=== PATIENT | male | born 1960 | race Caucasian/White ===

== ENCOUNTER 2017-10-02 14:31 | Emergency (ER) | payer BC ==
--- NOTE | 2017-10-02 15:11 | EDM.PDOC ---
ED HPI GENERAL MEDICAL PROBLEM - General Chief Complaint: ENT Problem Stated Complaint: TOOTH PAIN Time Seen by Provider: 10/02/17 14:56 Source of Information: Reports: Patient History Limitations: Reports: No Limitations - History of Present Illness INITIAL COMMENTS - FREE TEXT/NARRATIVE: HISTORY AND PHYSICAL: History of present illness: Patient is a 56-year-old male who presents to the emergency room today with complaints of right posterior molar dental pain 3 days. He states he has had a root canal in that location and has had an abscess to that area previous. He states his dentist told him he would be more susceptible to infections in that tooth. He did attempt to get a hold of his dentist yesterday, but they were closed. Today he is requesting an antibiotic and something for pain management. He states he's been using Tylenol and ibuprofen and has not gotten any relief. Denies any fever, chills, throat pain, ear pain, chest pain or shortness of breath. Review of systems: As per history of present illness and below otherwise all systems reviewed and negative. Past medical history: As per history of present illness and as reviewed below otherwise noncontributory. Surgical history: As per history of present illness and as reviewed below otherwise noncontributory. Social history: No reported history of drug or alcohol abuse. Family history: As per history of present illness and as reviewed below otherwise noncontributory. Physical exam: HEENT: Atraumatic, normocephalic, pupils reactive, negative for conjunctival pallor or scleral icterus, mucous membranes moist, throat clear, neck supple, nontender, no lymphadenopathy, trachea midline. Erythema and swelling to #31 # 32. No drainage noted. Meningeal signs. Lungs: Clear to auscultation, breath sounds equal bilaterally, chest nontender. Heart: S1S2, regular rate and rhythm Abdomen: Soft, nondistended, nontender. Pelvis: Stable nontender. Genitourinary: Deferred. Rectal: Deferred. Extremities: Atraumatic, moves all per self. Neurovascular unremarkable. Neuro: Awake, alert, oriented. Cranial nerves II through XII unremarkable. Cerebellum unremarkable. Motor and sensory unremarkable throughout. Exam nonfocal. We'll treat the dental abscess with Augmentin 1 tab twice a day 10 days. We'll dispense 20 tablets of Toledo 5/325 for pain. Did discuss following up with his dentist next week. He voices understanding and has a plan for dental assessment on Wednesday/Wednesday. Diagnostics: [] Therapeutics: [] Impression: Dental abscess Plan: 1. Please take the antibiotic as prescribed. As we discussed reserve the Toledo for home and nighttime use. This medication is a narcotic and will make you drowsy. During daytime hours or while at work use Tylenol or ibuprofen. 2. Follow-up with your dentist as we discussed. Return to the ED as needed and as discussed. Definitive disposition and diagnosis as appropriate pending reevaluation and review of above. Duration: Day(s): Location: Reports: Face ED ROS ENT - Review of Systems Review Of Systems: ROS reveals no pertinent complaints other than HPI. ED EXAM, ENT - Physical Exam Exam: See Below (See dictation) Departure - Departure Time of Disposition: 15:09 Disposition: Home, Self-Care 01 Clinical Impression: Dental abscess - Discharge Information Referrals: Bo Parnell MD [Primary Care Provider] - Additional Instructions: My general discharge The following information is given to patients seen in the emergency department who are being discharged to home. This information is to outline your options for follow-up care. We provide all patients seen in our emergency department with a follow-up referral. The need for follow-up, as well as the timing and circumstances, are variable depending upon the specifics of your emergency department visit. If you don't have a primary care physician on staff, we will provide you with a referral. We always advise you to contact your personal physician following an emergency department visit to inform them of the circumstance of the visit and for follow-up with them and/or the need for any referrals to a consulting specialist. The emergency department will also refer you to a specialist when appropriate. This referral assures that you have the opportunity for follow-up care with a specialist. All of these measure are taken in an effort to provide you with optimal care, which includes your follow-up. Under all circumstances we always encourage you to contact your private physician who remains a resource for coordinating your care. When calling for follow-up care, please make the office aware that this follow-up is from your recent emergency room visit. If for any reason you are refused follow-up, please contact the [facility] Emergency Department at and asked to speak to the emergency department charge nurse. SA[facility] [address] [place] [id number] 1. Please take the antibiotic as prescribed. As we discussed reserve the Toledo for home and nighttime use. This medication is a narcotic and will make you drowsy. During daytime hours or while at work use Tylenol or ibuprofen. 2. Follow-up with your dentist as we discussed. Return to the ED as needed and as discussed.
== END 2017-10-02 15:20 | disposition home or self-care (01) ==
LOC: MW.ED 14:31
DX: K04.7 Periapical abscess without sinus (principal)
CPT/HCPCS: 99282

== ENCOUNTER 2017-10-02 17:15 | Emergency (ER) | payer BC | END 2017-10-02 17:31 | disposition left against medical advice (07) | LOC: MW.ED 17:15 | DX: Z53.21 Procedure and treatment not carried out due to patient leaving prior to being seen by health care provider (principal) ==

== ENCOUNTER 2018-12-02 11:26 | Day surgery (SDC) | payer BC ==
[~2018-12-02 11:26] MED LIST: Lactated Ringers 1,000 ML IV SCH; Midazolam 1 MG/ML 2 ML SDV ONE; Propofol 200 MG/20 ML SDV ONE
--- NOTE | 2018-12-02 12:58 | PCM.PREANE ---
Preanesthetic Assessment - Anesthesia/Transfusion/Family Hx Anesthesia History: Prior Anesthesia Without Reaction Family History of Anesthesia Reaction: No Transfusion History: No Prior Transfusion(s) Intubation History: Unknown - Review of Systems General: No Symptoms Pulmonary: No Symptoms Cardiovascular: No Symptoms Gastrointestinal: Abdominal Pain, Other (repeat colonoscopy (polyps 5 years ago) ) Neurological: No Symptoms Other: Reports: None - Physical Assessment O2 Sat by Pulse Oximetry: 96 Respiratory Rate: 16 Vital Signs: Last Vital Signs Temp 36.4 C 12/02/18 12:46 Pulse 59 L 12/02/18 12:46 Resp 16 12/02/18 12:46 BP 126/83 12/02/18 12:46 Pulse Ox 96 12/02/18 12:46 Height: 1.91 m Weight: 126.099 kg ASA Class: 2 Mental Status: Alert & Oriented x3 Airway Class: Mallampati = 2 Dentition: Reports: Normal Dentition Thyro-Mental Finger Breadths: 3 Mouth Opening Finger Breadths: 3 ROM/Head Extension: Full Lungs: Clear to Auscultation, Normal Respiratory Effort Cardiovascular: Regular Rate, Regular Rhythm - Allergies Allergies/Adverse Reactions: Allergies Allergy/AdvReac Type Severity Reaction Status Date / Time No Known Allergies Allergy Verified 11/29/18 08:08 - Blood Blood Available: No - Anesthesia Plan Pre-Op Medication Ordered: None - Acknowledgements Anesthesia Type Planned: MAC Pt an Appropriate Candidate for the Planned Anesthesia: Yes Alternatives and Risks of Anesthesia Discussed w Pt/Guardian: Yes Pt/Guardian Understands and Agrees with Anesthesia Plan: Yes PreAnesthesia Questionnaire - Past Health History Medical/Surgical History: Denies Medical/Surgical History HEENT History: Reports: Other (See Below) Other HEENT History: wears glasses Cardiovascular History: Reports: High Cholesterol Respiratory History: Reports: PE Other Respiratory History: PE after a fall in Aug 2018, diagnosis questionable- placed on Eloquis for 3 months Gastrointestinal History: Reports: Colon Polyp Genitourinary History: Reports: None Musculoskeletal History: Reports: None Neurological History: Reports: None Psychiatric History: Reports: None Endocrine/Metabolic History: Reports: Obesity/BMI 30+ Hematologic History: Reports: None Immunologic History: Reports: None Oncologic (Cancer) History: Reports: None Dermatologic History: Reports: None - Past Surgical History Head Surgeries/Procedures: Reports: None HEENT Surgical History: Reports: Tonsillectomy Cardiovascular Surgical History: Reports: None Respiratory Surgical History: Reports: None GI Surgical History: Reports: Colonoscopy (5 years ago in [place] - polyps discovered) Endocrine Surgical History: Reports: None Neurological Surgical History: Reports: None Musculoskeletal Surgical History: Reports: None Oncologic Surgical History: Reports: None Dermatological Surgical History: Reports: None - SUBSTANCE USE Smoking Status *Q: Never Smoker Recreational Drug Use History: No - HOME MEDS Home Medications: Home Meds atorvaSTATin [Lipitor] 20 mg PO DAILY 06/25/18 [History] Aspirin [Adult Aspirin] 81 mg PO DAILY 11/04/18 [History] - CURRENT (IN HOUSE) MEDS Current Meds: Current Medications Lactated Ringer's (Ringers, Lactated) 1,000 mls @ 125 mls/hr IV ASDIRECTED [facility] Last Admin: 12/02/18 12:25 Dose: 125 mls/hr Discontinued Medications Lactated Ringer's (Ringers, Lactated) 1,000 mls @ 125 mls/hr IV ASDIRECTED [facility] Midazolam HCl (Versed 1 Mg/Ml) Confirm Administered Dose 2 mg .ROUTE .STK-MED ONE Stop: 12/02/18 11:12 Propofol (Diprivan 20 Ml) Confirm Administered Dose 400 mg .ROUTE .STK-MED ONE Stop: 12/02/18 11:12
--- NOTE | 2018-12-02 14:44 | PCM.OPNOTE ---
- General Post-Op/Procedure Note Date of Surgery/Procedure: 12/02/18 Operative Procedure(s): Colonoscopy w/ cold rectal polypectomy Pre Op Diagnosis: Personal history of colon polyps Post-Op Diagnosis: Rectal polyp Anesthesia Technique: MAC (ASA II) Primary Surgeon: Javid Carpio Condition: Good Free Text/Narrative:: DICTATION 608440 CPT CODE 53613
[2018-12-02] MEDS ORDERED: Lactated Ringers 1,000 ML IV SCH (14:45)
--- NOTE | 2018-12-02 15:29 | PCM48HPAN ---
Post Anesthesia Note - EVALUATION WITHIN 48HRS OF ANESTHETIC Vital Signs in Normal Range: Yes Patient Participated in Evaluation: Yes Respiratory Function Stable: Yes Airway Patent: Yes Cardiovascular Function Stable: Yes Hydration Status Stable: Yes Pain Control Satisfactory: Yes Nausea and Vomiting Control Satisfactory: Yes Mental Status Recovered: Yes Resp Rate: 12 - COMMENTS/OBSERVATIONS Free Text/Narrative:: no anesthesia problems
--- NOTE | 2018-12-02 20:06 | OR ---
SURGEON: Javid Carpio M.D. DATE OF PROCEDURE: 12/02/2018 OPERATION PERFORMED: Colonoscopy with cold rectal polypectomy. ANESTHESIA: MAC. ASA CLASSIFICATION: 2. PREOPERATIVE DIAGNOSIS: Personal history of colon polyps. POSTOPERATIVE DIAGNOSIS: Rectal polyp. DESCRIPTION OF PROCEDURE: The patient was taken to the endoscopy room and positioned on the endoscopy table in the left lateral decubitus position. Time-out was called for appropriate identification of the patient and procedure. Monitored anesthesia care was provided. The colonoscope was inserted into the rectum and advanced with minimal difficulty to the cecum where the colonoscope was retroflexed to visualize the ascending colon from below. The colonoscope was then straightened and slowly withdrawn. The cecum, ascending colon, hepatic flexure, transverse colon, splenic flexure, descending colon, and sigmoid colon were very well visualized. No tumors, polyps, diverticula, or angiodysplastic changes were noted. One small polyp was encountered in the rectum, and this was removed with the cold biopsy forceps. The colonoscope was retroflexed to visualize the ascending colon from below, then straightened to visualize the anal orifice from above. No tumors, polyps, or acute hemorrhoidal changes were noted. The colonoscope was then straightened, the rectum aspirated, and the colonoscope removed. The patient tolerated the procedure well and was taken to recovery room in stable condition. EVELYN ARELLANO /[id number]
== END 2018-12-02 15:15 | disposition home or self-care (01) ==
LOC: MW.SDS 11:26
PROVIDERS: ATTEND Surgery
DX: Z12.11 Encounter for screening for malignant neoplasm of colon (principal); K62.1 Rectal polyp; E66.9 Obesity, unspecified; Z68.34 Body mass index [BMI] 34.0-34.9, adult; E88.81 Metabolic syndrome and other insulin resistance; E78.00 Pure hypercholesterolemia, unspecified; Z86.010 Personal history of colon polyps; Z79.82 Long term (current) use of aspirin; Z79.899 Other long term (current) drug therapy
CPT/HCPCS: 45380; J2250; J2704; J7120

== ENCOUNTER 2020-01-05 22:11 | Emergency (ER) | payer BC, OTHER ==
--- NOTE | 2020-01-05 22:25 | EDM.PDOC ---
ED HPI GENERAL MEDICAL PROBLEM - General Chief Complaint: Fever Stated Complaint: FEVER Time Seen by Provider: 01/05/20 22:21 Source of Information: Reports: Patient History Limitations: Reports: No Limitations - History of Present Illness INITIAL COMMENTS - FREE TEXT/NARRATIVE: Patient is a 59-year-old male who is complaining of having his shingles vaccine in his left arm yesterday after which he had severe arm pain and then flulike symptoms which have continued on today for worsen this morning. Patient states he felt like he was hit by a truck. He denies that his arm is red or swollen or painful currently. Complaining of both fever and chills. He denies any cough or shortness of breath. Patient is not nauseous but no vomiting or diarrhea. He states he has eaten all his meals without difficulty today. He denies any dysuria or hematuria. He has had no chest or abdominal pain. Patient has been taking Tylenol without relief of his symptoms today. States he did go to work and does have a mild headache currently. 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 Pain Score (Numeric/FACES): 2 - Related Data Allergies Allergy/AdvReac Type Severity Reaction Status Date / Time No Known Allergies Allergy Verified 01/05/20 22:24 Home Meds: Home Meds atorvaSTATin [Lipitor] 20 mg PO DAILY 06/25/18 [History] Aspirin [Adult Aspirin] 81 mg PO DAILY 11/04/18 [History] Sildenafil [Viagra] mg PO ASDIRECTED PRN 01/05/20 [History] Past Medical History - Past Health History Medical/Surgical History: Denies Medical/Surgical History HEENT History: Reports: Other (See Below) Other HEENT History: wears glasses Cardiovascular History: Reports: High Cholesterol Respiratory History: Reports: PE Other Respiratory History: PE after a fall in Aug 2018, diagnosis questionable- placed on Eloquis for 3 months Gastrointestinal History: Reports: Colon Polyp Genitourinary History: Reports: None Musculoskeletal History: Reports: None Neurological History: Reports: None Psychiatric History: Reports: None Endocrine/Metabolic History: Reports: Obesity/BMI 30+ Hematologic History: Reports: None Immunologic History: Reports: None Oncologic (Cancer) History: Reports: None Dermatologic History: Reports: None - Past Surgical History Head Surgeries/Procedures: Reports: None HEENT Surgical History: Reports: Tonsillectomy Cardiovascular Surgical History: Reports: None Respiratory Surgical History: Reports: None GI Surgical History: Reports: Colonoscopy (5 years ago in [place] - polyps discovered) Endocrine Surgical History: Reports: None Neurological Surgical History: Reports: None Musculoskeletal Surgical History: Reports: None Oncologic Surgical History: Reports: None Dermatological Surgical History: Reports: None Social & Family History - Family History Family Medical History: Noncontributory Cardiac: Reports: High Cholesterol, Hypertension - Caffeine Use Caffeine Use: Reports: Coffee Caffeine Use Comment: 3 cups/day ED ROS GENERAL - Review of Systems Review Of Systems: Comprehensive ROS is negative, except as noted in HPI. ED EXAM, GENERAL - Physical Exam Exam: See Below Free Text/Narrative:: Exam: See Below Exam Limited By: No Limitations Head: Atraumatic Neck: Normal Inspection. No: Carotid Bruit, Lymphadenopathy (R) Respiratory/Chest: No Respiratory Distress, Lungs Clear, Normal Breath Sounds, No Accessory Muscle Use. No: Chest Non-Tender Cardiovascular: Normal Peripheral Pulses, Regular Rate, Rhythm, No Edema, No JVD GI/Abdominal: Normal Bowel Sounds, Tender. No: Non-Tender, Splenomegaly Back Exam: Normal Inspection. No: CVA Tenderness (R) Extremities: Normal Inspection. No: No Pedal Edema Neurological: Alert, Oriented, Normal Cognition Psychiatric: Normal Affect Skin Exam: Warm Lymphatic: No Adenopathy Exam Limited By: No Limitations General Appearance: Alert, No Apparent Distress Course - Vital Signs Text/Narrative:: Is feeling better with Toradol and a liter of IV fluid. Is COVID-19 and influenza swabs are negative. I am discharging him home at this time with a prescription for some Hancock to use as needed. He is to return to ER if symptoms are worse. 3 stress and ibuprofen with meals. Last Recorded V/S: Last Vital Signs Temp 36.8 C 01/05/20 22:22 Pulse 77 01/05/20 23:15 Resp 16 01/05/20 23:15 BP 128/66 01/05/20 23:15 Pulse Ox 94 L 01/05/20 23:15 - Orders/Labs/Meds Orders: Active Orders 24 hr Category Date Time Status Sodium Chloride 0.9% [Normal Saline] 1,000 ml Med 01/05/20 22:32 Active IV .BOLUS Medication Orders Sodium Chloride (Normal Saline) 1,000 mls @ 999 mls/hr IV .BOLUS ONE Stop: 01/05/20 23:32 Last Admin: 01/05/20 22:47 Dose: 999 mls/hr Labs: Laboratory Tests 01/05/20 Range/Units 22:40 SARS-CoV-2 RNA (RT-PCR) NEGATIVE (NEGATIVE) Meds: Medications Generic Name Dose Route Start Last Admin Trade Name Freq PRN Reason Stop Dose Admin Sodium Chloride 1,000 mls @ 999 mls/hr 01/05/20 22:32 01/05/20 22:47 Normal Saline IV 01/05/20 23:32 999 mls/hr .BOLUS ONE Administration Discontinued Medications Generic Name Dose Route Start Last Admin Trade Name Freq PRN Reason Stop Dose Admin Ketorolac Tromethamine 30 mg 01/05/20 22:32 01/05/20 22:47 Toradol IVPUSH 01/05/20 22:33 30 mg ONETIME ONE Administration Departure - Departure Time of Disposition: 23:20 Disposition: Home, Self-Care 01 Condition: Good Clinical Impression: Flu-like symptoms - Discharge Information Instructions: Fever, Adult, [id number] Referrals: Kristyn Villasenor MD [Primary Care Provider] - Forms: ED Department Discharge Additional Instructions: Increase rest and fluids. Ibuprofen with meals. Hancock if needed. Return to ER if worse. Care Plan Goals: The following information is given to patients seen in the emergency department who are being discharged to home. This information is to outline your options for follow-up care. We provide all patients seen in our emergency department with a follow-up referral. The need for follow-up, as well as the timing and circumstances, are variable depending upon the specifics of your emergency department visit. If you don't have a primary care physician on staff, we will provide you with a referral. We always advise you to contact your personal physician following an emergency department visit to inform them of the circumstance of the visit and for follow-up with them and/or the need for any referrals to a consulting specialist. The emergency department will also refer you to a specialist when appropriate. This referral assures that you have the opportunity for follow-up care with a specialist. All of these measure are taken in an effort to provide you with optimal care, which includes your follow-up. Under all circumstances we always encourage you to contact your private physician who remains a resource for coordinating your care. When calling for follow-up care, please make the office aware that this follow-up is from your recent emergency room visit. If for any reason you are refused follow-up, please contact the [facility] Emergency Department at and asked to speak to the emergency department charge nurse. Sepsis Event Note - Focused Exam Vital Signs: Vital Signs Temp Pulse Resp BP Pulse Ox 01/05/20 23:15 77 16 128/66 94 L 01/05/20 22:22 36.8 C 79 18 145/78 H 92 L Date Exam was Performed: 01/05/20 Time Exam was Performed: 23:19 - My Orders Last 24 Hours: My Active Orders 01/05/20 22:32 Sodium Chloride 0.9% [Normal Saline] 1,000 ml IV .BOLUS - Assessment/Plan Last 24 Hours: My Active Orders 01/05/20 22:32 Sodium Chloride 0.9% [Normal Saline] 1,000 ml IV .BOLUS
[2020-01-05] MEDS ORDERED: Sodium Chloride 0.9% 1,000 ML IV ONE (22:32)
[2020-01-05] MEDS ORDERED: Ketorolac 30 MG/ML SDV IVPUSH ONE (22:32)
== END 2020-01-05 23:33 | disposition home or self-care (01) ==
LOC: MW.ED 22:11
DX: R50.9 Fever, unspecified (principal); R51 Headache; E78.00 Pure hypercholesterolemia, unspecified; E66.9 Obesity, unspecified; Z68.35 Body mass index [BMI] 35.0-35.9, adult; Z79.899 Other long term (current) drug therapy; Z79.82 Long term (current) use of aspirin
CPT/HCPCS: 87635; 87804; 96374; 99283; J1885; J7030; U0002

== ENCOUNTER 2021-09-06 10:07 | Emergency (ER) | payer BC ==
[2021-09-06] MEDS ORDERED: Ketorolac 60 MG/2 ML SDV IM ONE (10:21)
--- NOTE | 2021-09-06 10:25 | EDM.PDOC ---
ED HPI GENERAL MEDICAL PROBLEM - General Chief Complaint: Upper Extremity Injury/Pain Stated Complaint: FELL HURT SHOULDER Time Seen by Provider: 09/06/21 10:09 Source of Information: Reports: Patient History Limitations: Reports: No Limitations - History of Present Illness INITIAL COMMENTS - FREE TEXT/NARRATIVE: HISTORY AND PHYSICAL: History of present illness: The patient is a 60-year-old man who is to the emergency department for complaints of right clavicle pain after falling yesterday. The patient states that he was stepping up onto a curb and lost his footing and fell onto his right side. He struck the right side of his head causing an abrasion. He had no LOC. The patient complains of pain with right arm abduction and abduction. He has no pain with movement of his elbow. Patient rates his pain an 8 out of 10 with movement. Patient states that he has never had anything like this before. The patient has not taken anything prior to arrival. Prior to this incidence the patient has been otherwise healthy. Patient denies any fever, chills, headache, change in vision, syncope or near syncope. Denies any chest pain, back pain, shortness of breath or cough. Denies any abdominal pain, nausea, vomiting, diarrhea, constipation or dysuria. Has not noted any blood in urine or stool. Patient has been eating and drinking appropriately. Review of systems: As per history of present illness and below otherwise all systems reviewed and negative. Past medical history: As per history of present illness and as reviewed below otherwise noncontributory. Surgical history: As per history of present illness and as reviewed below otherwise noncontributory. Social history: See social history for further information Family history: As per history of present illness and as reviewed below otherwise noncontributory. Physical exam: General: Well developed and well nourished. Alert and orientated x 3. Nontoxic in appearance and in no acute distress. Vital signs are stable and have been reviewed by me. Nursing notes were reviewed. HEENT: Atraumatic, normocephalic, pupils equal and reactive bilaterally, negative for conjunctival pallor or scleral icterus, mucous membranes moist, TMs normal bilaterally, throat clear, neck supple, nontender, trachea midline. No drooling or trismus noted. No meningeal signs. No hot potato voice noted. Lungs: Clear to auscultation bilaterally. No wheezes, rales, or rhonchi. Chest nontender. Normal work of breathing, no accessory muscles used. Heart: S1S2, regular rate and rhythm without overt murmur, gallops, or rubs. No JVD. No peripheral edema Abdomen: Soft, nondistended, nontender. Normoactive bowel sounds. Negative for masses or costovertebral tenderness. Skin: Intact, warm, dry. No lesions or rashes noted. Hematologic: No petechiae or purpra. Mucosa appropriate color and normal nail bed color and refill. Extremities: Pain with abduction and abduction. Obvious form of the mid clavicular right side. Neurovascularly intact. Moves all other extremities per self without difficulty or deficits, negative for cords or calf pain. Neurovascular unremarkable. Neuro: Awake, alert, oriented. Cranial nerves II through XII unremarkable. Cerebellum unremarkable. Motor and sensory unremarkable throughout. Exam nonfocal. Psychiatric: Mood and affect are appropriate. Normal thought process. Answering questions appropriately. Notes: *This patient was seen and evaluated during the 2019 SARS-CoV-2 novel coronavirus pandemic period. Community viral transmission is ongoing at time of this encounter and the emergency department is operating under pandemic response procedures. As stated above the patient is a 60-year-old male who to the emergency department with complaints of right clavicular pain with right arm abduction and abduction after falling when stepping up on a curb yesterday. As the patient has driven I will treat his pain with Toradol and obtain an x-ray. The patient is agreeable with this plan. Right Clavicle x-ray: Findings: The humeral head is seated within the glenoid. The humeral head is high-riding which can be seen with rotator cuff pathology. Degenerative changes are identified at the acromioclavicular and glenohumeral joint spaces. No fracture or subluxation is identified. I consulted with Dr. Severino on the x-ray and patient findings. I will order a right shoulder x-ray and AC joints. I updated the patient and he is agreeable with this plan. Right Shoulder x-ray: Impression: Mild degenerative change. AC joint x-ray: Impression: Questionable mild sprain of the right acromioclavicular joint with minimal widening of the AC interval with weighted images. No evidence of displaced fracture. Patient does not wish to wear a sling and we did discuss allowing his shoulder to rest. 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 We did review the exercises to keep his shoulder from freezing up. The patient will follow up with an orthopedic surgeon. I have talked with the patient about today's findings, in addition to providing specific details for plan of care. Reassessment at the time of disposition d emonstrates that the patient is in no acute distress. The patient is stable for discharge, counseling was provided and we discussed in great detail signs and symptoms that would prompt them to return to the Emergency Department. Medication, follow up and supportive care measures were reviewed and discussed. Voices understanding and is agreeable to plan of care. Denies any further questions or concerns at this time. Diagnostics: Right clavicle x-ray, right shoulder x-ray, and AC joints. Therapeutics: Toradol Impression: acromioclavicular sprain Plan: 1. You were evaluated today on an emergent basis. Your right clavicular pain was evaluated with x-rays and it was found to mild sprain of your acromioclavicular joint. This involves resting your right arm and as you have opted for no sling do not do any exercises or activity that requires over the head activity. As we discussed you can use some pendulum swings without weight. We will have you follow-up with an orthopedic surgeon in possibility you will need physical therapy to ensure shoulder strength. If you were to have increased pain or decreased use or numbness or tingling please return to the emergency department as you might need further work-up. 2. You can alternate Tylenol and ibuprofen as needed for pain and fever management. 3. We encourage you to follow up with your primary care provider and/or recommended specialist in the next few days for re-evaluation and further care/management. 4. If your symptoms should worsen, new symptoms develop or any of the signs and symptoms we discussed should arise please return to the emergency room or call 911 (if needed). Definitive disposition and diagnosis as appropriate pending reevaluation and review of above. Right Shoulder Pain Score (Numeric/FACES): 8 - Related Data Allergies Allergy/AdvReac Type Severity Reaction Status Date / Time No Known Allergies Allergy Verified 09/06/21 10:10 Home Meds: Home Meds atorvaSTATin [Lipitor] 20 mg PO DAILY 06/25/18 [History] Aspirin [Adult Aspirin] 81 mg PO DAILY 11/04/18 [History] Sildenafil [Viagra] mg PO ASDIRECTED PRN 01/05/20 [History] Past Medical History - Past Health History Medical/Surgical History: Denies Medical/Surgical History HEENT History: Reports: Other (See Below) Other HEENT History: wears glasses Cardiovascular History: Reports: High Cholesterol Respiratory History: Reports: PE Other Respiratory History: PE after a fall in Aug 2018, diagnosis questionable- placed on Eloquis for 3 months Gastrointestinal History: Reports: Colon Polyp Genitourinary History: Reports: None Musculoskeletal History: Reports: None Neurological History: Reports: None Psychiatric History: Reports: None Endocrine/Metabolic History: Reports: Obesity/BMI 30+ Hematologic History: Reports: None Immunologic History: Reports: None Oncologic (Cancer) History: Reports: None Dermatologic History: Reports: None - Infectious Disease History Infectious Disease History: Reports: None - Past Surgical History Head Surgeries/Procedures: Reports: None HEENT Surgical History: Reports: Tonsillectomy Cardiovascular Surgical History: Reports: None Respiratory Surgical History: Reports: None GI Surgical History: Reports: Colonoscopy Endocrine Surgical History: Reports: None Neurological Surgical History: Reports: None Musculoskeletal Surgical History: Reports: None Oncologic Surgical History: Reports: None Dermatological Surgical History: Reports: None Social & Family History - Family History Family Medical History: No Pertinent Family History Cardiac: Reports: High Cholesterol, Hypertension - Caffeine Use Caffeine Use: Reports: Coffee Caffeine Use Comment: 3 cups/day Review of Systems - Review of Systems Review Of Systems: Comprehensive ROS is negative, except as noted in HPI. ED EXAM, GENERAL - Physical Exam Exam: See Below (See dictation) Course - Vital Signs Last Recorded V/S: Last Vital Signs Temp 98.1 F 09/06/21 10:10 Pulse 56 L 09/06/21 13:24 Resp 16 09/06/21 10:10 BP 132/81 09/06/21 13:24 Pulse Ox 98 09/06/21 13:24 - Orders/Labs/Meds Meds: Medications Discontinued Medications Generic Name Dose Route Start Last Admin Trade Name Freq PRN Reason Stop Dose Admin Ketorolac Tromethamine 60 mg 09/06/21 10:21 09/06/21 10:36 Ketorolac 60 Mg/2 Ml Sdv IM 09/06/21 10:22 60 mg ONETIME ONE Administration Departure - Departure Time of Disposition: 12:59 Disposition: Home, Self-Care 01 Condition: Good Clinical Impression: Acromioclavicular sprain Qualifiers: Encounter type: initial encounter Laterality: right Qualified Code(s): S43.51XA - Sprain of right acromioclavicular joint, initial encounter - Discharge Information *PRESCRIPTION DRUG MONITORING PROGRAM REVIEWED*: Not Applicable *COPY OF PRESCRIPTION DRUG MONITORING REPORT IN PATIENT EMANUEL: Not Applicable Instructions: Shoulder Pain, [id number] Referrals: PCP,None [Primary Care Provider] - Forms: ED Department Discharge Additional Instructions: The following information is given to patients seen in the emergency department who are being discharged to home. This information is to outline your options for follow-up care. We provide all patients seen in our emergency department with a follow-up referral. The need for follow-up, as well as the timing and circumstances, are variable depending upon the specifics of your emergency department visit. If you don't have a primary care physician on staff, we will provide you with a referral. We always advise you to contact your personal physician following an emergency department visit to inform them of the circumstance of the visit and for follow-up with them and/or the need for any referrals to a consulting specialist. The emergency department will also refer you to a specialist when appropriate. This referral assures that you have the opportunity for follow-up care with a specialist. All of these measure are taken in an effort to provide you with optimal care, which includes your follow-up. Under all circumstances we always encourage you to contact your private physician who remains a resource for coordinating your care. When calling for follow-up care, please make the office aware that this follow-up is from your recent emergency room visit. If for any reason you are refused follow-up, please contact the [facility] Emergency Department at and asked to speak to the emergency department charge nurse. [facility] [address] [place] [address], [address] [place] [address] [facility] [address] [place] [id number] Plan: 1. You were evaluated today on an emergent basis. Your right clavicular pain was evaluated with x-rays and it was found to mild sprain of your acromioclavicular joint. This involves resting your right arm and as you have opted for no sling do not do any exercises or activity that requires over the head activity. As we discussed you can use some pendulum swings without weight. We will have you follow-up with an orthopedic surgeon in possibility you will need physical therapy to ensure shoulder strength. If you were to have increased pain or decreased use or numbness or tingling please return to the emergency department as you might need further work-up. 2. You can alternate Tylenol and ibuprofen as needed for pain and fever management. 3. We encourage you to follow up with your primary care provider and/or recommended specialist in the next few days for re-evaluation and further care/management. 4. If your symptoms should worsen, new symptoms develop or any of the signs and symptoms we discussed should arise please return to the emergency room or call 911 (if needed). Sepsis Event Note (ED) - Evaluation Sepsis Screening Result: No Definite Risk - Focused Exam Vital Signs: Vital Signs Temp Pulse Resp BP Pulse Ox 09/06/21 13:24 56 L 132/81 98 09/06/21 12:20 61 134/82 97 09/06/21 11:20 55 L 135/85 99 09/06/21 10:10 98.1 F 61 16 135/87 97
--- NOTE | 2021-09-06 11:07 | CR ---
Indication: Pain. Right clavicle trauma. Technique: Two views of the right clavicle. Comparison: None Findings: The humeral head is seated within the glenoid. The humeral head is high-riding which can be seen with rotator cuff pathology. Degenerative changes are identified at the acromioclavicular and glenohumeral joint spaces. No fracture or subluxation is identified. Impression: Degenerative change. High riding humeral head Dictated by Deepti Ricketts MD @ 09/06/2021 11:06:52 AM (Electronically Signed)
--- NOTE | 2021-09-06 12:43 | CR ---
Indication: Fall. Pain. Technique: Three views of the right shoulder. Comparison: None Findings: The humeral head is seated within the glenoid. No fracture or subluxation is identified. Mild degenerative changes are identified. Impression: Mild degenerative change Dictated by Deepti Ricketts MD @ 09/06/2021 12:42:33 PM (Electronically Signed)
--- NOTE | 2021-09-06 12:49 | CR ---
Indication: Fall, pain Comparison: None available. Technique: Axial and AP weighted and on weighted views of the bilateral clavicles were obtained. Findings: There is no evidence of displaced fracture or dislocation. There is mild widening of the right acromioclavicular interval with weighted imaging. There is moderate left greater than right degenerative change of the acromioclavicular joints. The soft tissues are unremarkable. Impression: Questionable mild sprain of the right acromioclavicular joint with minimal widening of the AC interval with weighted images. No evidence of displaced fracture. Dictated by Blaise Cain MD @ 09/06/2021 12:47:59 PM (Electronically Signed)
== END 2021-09-06 13:26 | disposition home or self-care (01) ==
LOC: MW.ED 10:07
DX: S43.51XA Sprain of right acromioclavicular joint, initial encounter (principal); E78.00 Pure hypercholesterolemia, unspecified; E66.9 Obesity, unspecified; Z68.30 Body mass index [BMI] 30.0-30.9, adult; Z79.82 Long term (current) use of aspirin; W18.09XA Striking against other object with subsequent fall, initial encounter
CPT/HCPCS: 73000; 73030; 96372; 99283; J1885

== ENCOUNTER 2025-04-29 13:35 | Emergency (ER) | payer OTHER, BC ==
[2025-04-29 14:05] LABS: BASOPHILS ABSOLUTE AUTO 0.07 K/uL (0.00-0.20); BASOPHILS PERCENT AUTO 0.8 % (0.0-1.0); EOSINOPHILS ABSOLUTE AUTO 0.35 K/uL (0.00-0.45); EOSINOPHILS PERCENT AUTO 4.1 % (0.0-6.0); IMMATURE GRAN ABSOLUTE AUTO 0.09 K/uL (0.00-0.05); IMMATURE GRAN PERCENT AUTO 1.0 % (0.0-0.4); LYMPHOCYTES ABSOLUTE AUTO 3.09 K/uL (1.00-4.80); LYMPHOCYTES PERCENT AUTO 36.0 % (24.0-44.0); MEAN PLATELET VOLUME 9.2 fL (9.4-12.4); MONOCYTES ABSOLUTE AUTO 0.62 K/uL (0.00-0.80); MONOCYTES PERCENT AUTO 7.2 % (0.0-8.0); NEUTROPHILS ABSOLUTE AUTO 4.37 K/uL (1.80-7.70); NEUTROPHILS PERCENT AUTO 50.9 % (41.0-71.0); NRBC ABSOLUTE 0.00 K/uL (0.00-0.02); NRBC PERCENT 0.0 /100WBC (0.0-0.2); PLATELET COUNT,PLT 255 K/uL (150-400); RED BLOOD CELL COUNT 5.36 M/uL (4.52-5.90); WHITE BLOOD CELL COUNT,WBC 8.59 K/uL (3.9-11.3)
[2025-04-29 14:36] LABS: A/G RATIO 1.1 (0.9-1.6); ALANINE AMINOTRANSFERASE,ALT 41 IU/L (14-63); ASPARTATE AMNIOTRANSFERASE,AST 24 IU/L (15-37); BILIRUBIN TOTAL 0.6 mg/dL (0.2-1.0); BLOOD UREA NITROGEN,BUN 18 mg/dL (7.0-18.0); CARBON DIOXIDE,CO2 23.1 mmol/L (21.0-32.0); CHLORIDE,CL 105 mmol/L (98-107); CREATININE 1.6 mg/dL (0.8-1.3); GLUCOSE RANDOM 97 mg/dL (74-106); POTASSIUM,K 3.8 mmol/L (3.5-5.1); PROTEIN TOTAL,TP 7.3 g/dL (6.4-8.2); SODIUM,NA 139 mmol/L (136-148)
[2025-04-29 14:39] LABS: LACTIC ACID 1.4 mmol/L (0.4-2.0)
[2025-04-29 14:41] LABS: ESTIMATED GFR 48 mL/min (>60)
[2025-04-29] MEDS: Iopamidol 755 MG/ML 500 ML Multipack Bottle IVPUSH STA (16:42)
[2025-04-29 17:12] LABS: APPEARANCE,URINE CLEAR; GLUCOSE,URINE NEGATIVE (NEGATIVE); OCCULT BLOOD,URINE NEGATIVE (NEGATIVE)
== END 2025-04-29 18:45 | disposition home or self-care (01) ==
LOC: MW.ED 13:35
DX: K52.9 Noninfective gastroenteritis and colitis, unspecified (principal); E86.0 Dehydration; E78.00 Pure hypercholesterolemia, unspecified; E66.9 Obesity, unspecified; Z68.30 Body mass index [BMI] 30.0-30.9, adult; Z79.899 Other long term (current) drug therapy; Z75.3 Unavailability and inaccessibility of health-care facilities
CPT/HCPCS: 36415; 74177; 80053; 81003; 83605; 83690; 83735; 85025; 96360; 96361; 99284; A9270; J7030; Q9967; 99283